=== PATIENT | female | born 1960 | race Caucasian/White ===

== ENCOUNTER 2019-03-30 18:14 | Emergency (ER) | payer OTHER ==
[2019-03-30] MEDS ORDERED: predniSONE TAB* 20 MG PO ONE (19:56)
--- NOTE | 2019-03-30 19:58 | ED ---
Skin Complaint - HPI Summary HPI Summary: This pt is a 58 Y/O F presenting to [facility] with a CC of a rash that has been spreading over her arms since 03/26/19 which are itchy, raised, burning and red. She states that she was gardening last weekend before the rash was present. She denies any fevers, chills, diaphoresis, N/V, SOB, CP, and headaches. She states that she has had no relief from any OTC medication that she has taken. She has no alleviating factors, but states that when she itches it she has increased pain. She has no pertinent PMHx. - History of Current Complaint Chief Complaint: EDRashSkinAbscess Time Seen by Provider: 03/30/19 19:45 Stated Complaint: POISON ROXANNE PER PT Hx Obtained From: Patient Onset/Duration: Started Days Ago - 4, Still Present Skin Exposure Onset/Duration: Days Ago - 4 Timing: Constant Current Severity: None Pain Intensity: 0 Pain Scale Used: 0-10 Numeric Skin Location: Arm, Hand Character: Hives, Redness, Raised Aggravating Symptom(s): Other: - itching Alleviating Symptom(s): Nothing Associated Signs & Symptoms: Negative - fevers, chills, diaphoresis, N/V, SOB, CP, and headaches, Rash - bilateral arms Related History: Other: - states she was gardnening last weekend. - Allergy/Home Medications Allergies/Adverse Reactions: Allergies Allergy/AdvReac Type Severity Reaction Status Date / Time Penicillins Allergy Hives Verified 03/30/19 18:19 PMH/Surg Hx/FS Hx/Imm Hx Previously Healthy: Yes Endocrine/Hematology History: Denies: Hx Diabetes Cardiovascular History: Denies: Hx Hypertension Respiratory History: Denies: Hx Asthma Sensory History: Reports: Hx Contacts or Glasses Opthamlomology History: Reports: Hx Contacts or Glasses - Surgical History Surgical History: Yes Surgery Procedure, Year, and Place: lap band Hx Anesthesia Reactions: No - Immunization History Immunizations Up to Date: Yes Infectious Disease History: No Infectious Disease History: Denies: Traveled Outside the [place] in Last 30 Days - Family History Known Family History: Positive: Hypertension - paternal , Diabetes - paternal - Social History Occupation: Employed Full-time Lives: With Family Alcohol Use: None Hx Substance Use: No Substance Use Type: Reports: None Hx Tobacco Use: No Smoking Status (MU): Former Smoker Length of Time of Smoking/Using Tobacco: Quit 18 years ago Review of Systems Negative: Fever, Chills Negative: Chest Pain Negative: Shortness Of Breath Negative: Vomiting, Nausea Positive: Rash - bilateral forearms Negative: Headache All Other Systems Reviewed And Are Negative: Yes Physical Exam - Summary Physical Exam Summary: General: Well-developed, Well-nourished female. No acute distress. HEENT: Normocephalic, Atraumatic. Eyes: Conjuctiva normal, PERRL. Ears: TMs within normal limits. Nares: (-) discharge, (-) erythema. Oropharynx: Clear, mucous membranes moist, (-) exudates. Neck: Soft, FROM, (-) lymphadenopathy, (-) thyromegaly, (-) JVD. Cardiovascular: Normal sinus rhythm, (-) murmur. Lungs: Clear to auscultation bilaterally (-) wheezes, (-) rales, (-) rhonchi. Abdomen: Soft, non-tender, non-distended, (-) organomegaly, normal bowel sounds. Back: (-) CVA tenderness Extremities: No edema. Skin: Warm, dry, Linear erythematous regions, no papules, no vesicles, no lesions in between the fingers or palms, bilateral arms Neuro: Alert and oriented x3, no focal deficits. Psychiatric: Mood normal, affect normal. Triage Information Reviewed: Yes Vital Signs On Initial Exam: Initial Vitals Temp Pulse Resp BP Pulse Ox 98.0 F 88 16 163/94 99 03/30/19 18:17 03/30/19 18:17 03/30/19 18:17 03/30/19 18:17 03/30/19 18:17 Vital Signs Reviewed: Yes Diagnostics - Vital Signs Vital Signs Temp Pulse Resp BP Pulse Ox 03/30/19 18:17 98.0 F 88 16 163/94 99 - Laboratory Lab Statement: Any lab studies that have been ordered have been reviewed, and results considered in the medical decision making process. Course/Dx - Course Course Of Treatment: This pt is a 58 Y/O F presenting to [facility] with a CC of a rash that has been spreading over her arms since 03/26/19 which are itchy, raised , burning and red. She states that she was gardening last weekend before the rash was present. She denies any fevers, chills, diaphoresis, N/V, SOB, CP, and headaches. She states that she has had no relief from any OTC medication that she has taken. Her PE found the following: Linear erythematous regions, no papules, no vesicles, no lesions in between the fingers or palms, bilateral arms. She will be discharged with contact dermatitis and instructed to take 50mgs of Benadryl every 6 hours. - Diagnoses Provider Diagnoses: Contact dermatitis Discharge ED - Sign-Out/Discharge Documenting (check all that apply): Patient Departure - discharge Patient Received Moderate/Deep Sedation with Procedure: No - Discharge Plan Condition: Stable Disposition: HOME Prescriptions: predniSONE [Prednisone 20 MG TAB] 20 mg PO DAILY 5 Days #10 tablet Patient Education Materials: Contact Dermatitis (ED) Referrals: Don Valles MD [Primary Care Provider] - 3 Days Additional Instructions: PLEASE RETURN TO THE EMERGENCY DEPARTMENT FOR ANY NEW OR WORSENING SYMPTOMS. FOLLOW UP WITH [facility] PRIMARY CARE PROVIDER IN 1-3 DAYS. Take Benadryl 50 mgs (2 tabs) every 6 hours. You have been prescried prednisone, take as directed. - Billing Disposition and Condition Condition: STABLE Disposition: Home - Attestation Statements Document Initiated by Scribe: Yes Documenting Scribe: Gary Lott Provider For Whom Rebecca is Documenting (Include Credential): Shauna Lundy MD Scribe Attestation: Gary Hernandez, scribed for Shauna Lundy MD on 04/01/19 at 2002. Scribe Documentation Reviewed: Yes Provider Attestation: The documentation as recorded by the Gary martinez accurately reflects the service I personally performed and the decisions made by me, Shauna Lundy MD Status of Scribe Document: Viewed
[2019-03-30 20:12] VITALS: BP 0/0
== END 2019-03-30 20:11 | disposition home or self-care (01) ==
LOC: ED 18:14
DX: L25.9 Unspecified contact dermatitis, unspecified cause (principal); R21 Rash and other nonspecific skin eruption; Z87.891 Personal history of nicotine dependence
CPT/HCPCS: 99282; J7512